=== PATIENT | female | born 1990 | race Caucasian/White ===

== ENCOUNTER 2019-08-25 08:55 | Emergency (ER) | payer MEDICAID, SELFPAY ==
[2019-08-25 08:56] VITALS: BP 118/68; PULSE 90; RESP 18; TEMP 36.6; O2SAT 100; BMI 25.9
--- NOTE | 2019-08-25 09:04 | US_ITS ---
STUDY: FIRST TRIMESTER OBSTETRICAL ULTRASOUND REASON FOR EXAM: Female, 29 years old BLEEDING QUANT 990 LMP: July 21, 2019. TECHNIQUE: Transvaginal TECHNICAL QUALITY: Adequate. PRIOR ULTRASOUND: None. FINDINGS: There is no demonstrated intrauterine gestational sac. There is no demonstrated yolk sac. The placenta is non-visualized. There is no demonstrated embryo ( pole). The uterus measures 7.8 cm x 4.1 cm x 3.1 cm. The endometrium measures 5.7 mm in full thickness. Tissue is seen within the endometrium with small amount of fluid. This may represent spontaneous . There is no demonstrated uterine fibroid. The cervix is closed. The right ovary measures 2 cm x 1.9 cm x 1.3 cm. There is no right ovarian cyst. There is no visualized right adnexal mass or complex lesion. The left ovary measures 3.7 cm x 2.7 cm x 2 cm. There is no left ovarian cyst. There is no visualized left adnexal mass or complex lesion. There is no fluid in the cul de sac. US/Transvaginal w/Preg US IMPRESSION: No evidence of intrauterine gestation. Soft tissue density within the endometrium. Spontaneous should be ruled out. Electronically Signed: Dino Mcdaniels, at 11:30 EDT , Service support ,
--- NOTE | 2019-08-25 09:07 | ED.VIS.GEN ---
History of Present Illness Chief Complaint: Vag Bld, Preg Informant: Patient Onset: Today Context: Gradual Onset Timing: Intermittent Current Severity: Moderate Maximum Severity: Moderate Narrative: The patient is a 29-year-old female G1, P0 at approximately 5 weeks gestation that presents to the emergency department with abdominal cramping and vaginal bleeding. Patient is currently at [facility] abuse [facility]. She states that she is had 3+ urine test. Today, she began to have some lower abdominal cramping and scant vaginal bleeding. She does think that her blood type is A-. She is never been in the past. She denies any weakness, nausea, or vomiting. She denies any urinary symptoms. Prior similar symptoms: No Recent Illness/Hospitalization: No Past Medical History - Allergies and Home Meds Allergies/Adverse Reactions: Allergies latex Allergy (Verified 08/25/19 08:59) Rash DAIRY Allergy (Uncoded 08/25/19 08:59) Vomiting Primary Care Physician: Anupama Pink MD [STAFF PHYSICIAN] - 2 Days Prior records reviewed: Yes Past Medical History: None Surgical History: no surgical history Review of Systems General: Denies: Chills, Fever, Sweats Eyes: Denies: Visual changes - bilaterally, Diplopia ENT: Denies: Rhinorrhea, Sore throat Cardiovascular: Denies: Chest pain, Palpitations Respiratory: Denies: Dyspnea, Cough, Dyspnea on exertion Gastrointestinal: Reports: Abdominal pain. Denies: Nausea, Vomiting, Diarrhea, Melena, Hematochezia Genitourinary: Denies: Dysuria, Hematuria, Frequency Musculoskeletal: Denies: Back pain, Extremity Pain Skin: Denies: Rash, Wounds Neurological: Denies: Headache, Weakness, Numbness Physical Exam Vital Signs/Narrative: Vital Signs Temp Pulse Resp BP Pulse Ox 08/25/19 08:56 98 F 90 18 118/68 100 Inital Vital Signs reviewed: Yes General: Well nourished, Well developed, No Acute Distress Head: Normocephalic, Atraumatic Eyes: Perrl, EOMI ENT: Moist mucous membranes, No rhinorrhea Neck: Supple, Nontender Cardiovascular: Regular rate, Regular rhythm, No murmurs Respiratory: No distress, CTA bilaterally, Chest nontender Abdomen: Soft, Nontender, Nondistended, Normal bowel sounds Back: Nontender, Normal Inspection Extremities: Nontender, No edema Skin: Normal color, No rash Neurological: Alert, Oriented x3, Cranial nerves II-XII grossly intact, Normal Strength, Normal Sensation Psychological: Normal affect, Normal Mood Diagnostic/Tx/Re-eval Clinical Impression(s) from Imaging Studies Obstetrics Ultrasound 08/25/19 09:04 IMPRESSION: No evidence of intrauterine gestation. Soft tissue density within the endometrium. Spontaneous should be ruled out. Electronically Signed: Dino Mcdaniels, at 11:30 EDT , Service support , Abnormal Lab Results 08/25/19 08/25/19 08/25/19 09:20 09:20 09:20 WBC 5.8 RBC 4.56 Hgb 13.4 Hct 40.9 MCV 89.7 MCH 29.4 MCHC 32.8 RDW Std Deviation 40.3 RDW Coeff of Glory 12.2 Plt Count 271 MPV 8.8 Immature Gran % (Auto) 0.300 Neut % (Auto) 65.2 Lymph % (Auto) 23.7 Harlan % (Auto) 8.7 Eos % (Auto) 1.6 Baso % (Auto) 0.5 Absolute Neuts (auto) 3.8 Absolute Lymphs (auto) 1.37 Nucleated RBC % 0 HCG, Quant 990 H Blood Type A POSITIVE - Medical Decision Making Patient presents to the emergency department with vaginal bleeding and positive test. Abdomen is soft and nontender. Patient's blood type was a positive. Quant was about 990. Patient underwent ultrasound which shows no evidence of ectopic. There was questionable evidence of recent spontaneous . The patient was counseled on this. She does have follow-up in place with [facility]. I did family court counsellor her that she would likely need a repeat quant in 2 days, along with if her symptoms are worsening, she gets any worsening pain, nausea, or anything changes that she should return. She is comfortable this plan of care and will be discharged home. Impression 1. Spontaneous ED Disposition - Plan for ED Patient: Instructions: Miscarriage Referrals: Anupama Pink MD [STAFF PHYSICIAN] - 2 Days
[2019-08-25 09:33] LABS: Absolute Lymphocyte Count 1.37 X10^3/uL (0.83-4.51); Absolute Neutrophil Count 3.8 X10^3/uL (2.0-7.7); Basophil# 0.03 X10^3/uL; Basophil% 0.5 % (0-1); Eosinophil# 0.09 X10^3/uL; Eosinophils% 1.6 % (0-5); Hematocrit 40.9 % (37-47); Hemoglobin 13.4 g/dL (12.0-15.0); Lymphocyte # 1.37 X10^3/ul (4.0); Lymphocyte % 23.7 % (19-41); Mean Corp Hgb Conc 32.8 g/dL (32-36); Mean Corpuscular Hgb 29.4 pg (27.0-32.0); Mean Corpuscular Volume 89.7 fL (81-99); Mean Platelet Vol. 8.8 fl (6.2-12.0); Monocyte% 8.7 % (0-10); NRBC Flagged by Analyzer 0 % (0-5); Neutrophil # 3.76 X10^3/uL (2.7-7.7); Neutrophil % 65.2 % (47-70); Platelet Count 271 K/mm3 (150-450); RBC Distribution Width CV 12.2 % (11.6-14.6); RBC Distribution Width SD 40.3 fl (35.1-43.9); Red Blood Count 4.56 M/mm3 (4.2-5.4); White Blood Count 5.8 K/mm3 (4.4-11.0)
[2019-08-25 09:53] LABS: hCG Titer Quant., Serum 990 mIU/mL (1-3)
[2019-08-25 11:35] VITALS: BP 108/60; PULSE 81; RESP 16; O2SAT 98
== END 2019-08-25 12:17 | disposition home or self-care (01) ==
LOC: ED 12:11
PROVIDERS: Emergency Provider Emergency Medicine
DX: O03.9 Complete or unspecified spontaneous abortion without complication (principal)
CPT/HCPCS: 76817; 84702; 85025; 86900; 86901; 99283

== ENCOUNTER 2019-08-28 15:53 | Day surgery (SDC) | payer MEDICAID, SELFPAY ==
[2019-08-28] VITALS (7 sets, daily range): BP systolic 101–120; BP diastolic 65–83; PULSE 63–96; RESP 16; TEMP 36.3–37; O2SAT 93–99; BMI 28.3
--- NOTE | 2019-08-28 16:30 | POC_PTH ---
PATIENT: MAX KIMBLE [place] [facility] [place][id number] AGE/SX: 29/F ROOM: RE08/28/[address]: Dr. Iris Smith MD : 1990 BED: DIS: 08/28/2019 SPEC #: [id number] RECD: 08/31/19 10:27 STATUS: DICKSON PERCYMaryam #: [id number] FRANCIA: 08/28/19 16:[address]: Iris Smith DEPT: SURGICAL PATHOLOGY RECD BY: Clinton Saucedo ENTERED: 08/31/19 10:53 SP TYPE: PROD CONC OTHR DR: No Primary Care Phys Tissues: A - Product of conception, NOS B - Endometrium, NOS Procedures: Surgery Specimen Level IV HEADER OPERATION: Laparoscopic salpingostomy, D & C PRE-OP DIAGNOSIS: Ectopic TISSUE SUBMITTED: A - Products of conception, B - Endometrial curettings MICROSCOPIC DIAGNOSIS A. Endometrium, curettage: Organizing blood clot and fibrinoid material. See comment. B. Endometrium, curettings: Secretory endometrium and decidualized tissue. AM:hina 09/01/19 COMMENT A. Chorionic villi are not identified. Clinical correlation is suggested. MICROSCOPIC DESCRIPTION Slides are reviewed. GROSS DESCRIPTION A - Received in fixative is one container labeled with the patient's name and designated products of conception. The specimen consists of multiple irregular fragments of dark serna soft tissue that in aggregate measure 3 x 2 x 0.3 cm. The specimen is totally submitted in one cassette. B - Received in fixative is one container labeled with the patient's name and designated endometrial curettings. The specimen consists of multiple irregular fragments of light serna mucoid material that in aggregate measure 2.6 x 2 x 0.2 cm. The specimen is totally submitted in one cassette. / AM:hina 08/31/19 TC:5 CPT: 42071 x2
--- NOTE | 2019-08-28 16:31 | PCM.HP.BLA ---
History and Physical Date of Admission: 08/28/19 ? HPI:?Patient presents with LLQ pain. ?The pain started today &?has become severe. ?Also she reports vaginal bleeding. ? PAST MEDICAL HISTORY PAST MEDICAL HISTORY Diagnosis Date ? Anxiety ? ? Asthma ? ? Depression ? ? Environmental and seasonal allergies ? ? Migraines ? ? Substance abuse (HCC) ? PAST SURGICAL HISTORY PAST SURGICAL HISTORY Procedure Laterality Date ? TONSILLECTOMY AND ADENOIDECTOMY HX ? 06/2004 ? UNSPECIFIED ORAL SURGERY PROCEDURE, BY REPORT ? 10/2007 ? wisdom tooth extraction FAMILY HISTORY FAMILY HISTORY Problem Relation Age of Onset ? Anxiety disorder Mother ? ? Depression Mother ? ? Allergies Mother ? ? Psychiatry Mother ? ? Alcohol/Drug Mother ? ? Psychiatry Father ? ? Alcohol/Drug Father ? ? No Known Problems Sister ? ? No Known Problems Brother ? SOCIAL HISTORY Social History ? Tobacco Use ? Smoking status: Current Every Day Smoker ? Smokeless tobacco: Never Used ? Tobacco comment: 6-7 cigarettes per day Substance Use Topics ? Alcohol use: Not Currently ? ? Frequency: Never ? ? Comment: Relapse yesterday (07/16/19) ? Drug use: Not Currently ? ? Comment: Cocaine abuse in sustanied remission CURRENT MEDICATIONS Current Outpatient Medications Medication Sig ? ibuprofen (MOTRIN) 600 mg tablet Take 1 tablet by mouth every 6 hours as needed. FOR PAIN. ? venlafaxine ER (EFFEXOR XR) 75 mg 24 hr capsule Take 1 capsule by mouth once daily. ? traZODone (DESYREL) 100 mg tablet Take 1 tablet by mouth daily at bedtime. ? prazosin (MINIPRESS) 1 mg cap Take 1 capsule by mouth twice daily. ? hydrOXYzine HCl (ATARAX) 50 mg tablet Take 1 tablet by mouth three times daily as needed. ? No current facility-administered medications for this visit.? Allergies As of Date: 08/28/2019 Allergen ?Noted ?Reaction DAIRY AID [LACTASE] ?12/04/2018 ?Intolerance LATEX ?12/03/2018 ?Hives ? Fully Assessed ?08/27/2019 ? REVIEW OF SYSTEMS Abdomen:?No bloating, early satiety, indigestion, or increased flatulence. No abdominal pain, nausea, vomiting, diarrhea, or constipation.? Bladder:?No dysuria, gross hematuria, urinary frequency, urinary urgency, or incontinence. Expanded ROS:?N/A Allergies and current medication updated:Yes ? EXAM:?LMP 07/21/2019? ? ? GENERAL:?pleasant,??female in no apparent distress CHEST:?Normal inspiratory effort ABDOMEN:?soft and no masses;?positive?LLQ tenderness PELVIC:?deferred NEURO:?alert and oriented x3,exam grossly non-focal EXTREMITIES:?normal ? ASSESSMENT AND PLAN:?? 29yo female with ectopic Discussed R/B/A of treatment options and patient wishes to proceed with surgery. ??Informed consent signed &?patient to [facility]. ? Hcg quant is 930 today and was 990 on 08/24. US (formal reports pending) shows 1 complex masses in left adnexa (2.3 & 2.5cm) and thickened endometrium at 1.3cm?? this history and physical was completed in our office today on 08/28/2019.
[2019-08-28] MEDS: Celecoxib 200 MG Capsule 400 MG PO (16:35)
[2019-08-28] MEDS: Acetaminophen 500 MG Tablet 1000 MG PO (16:36)
[2019-08-28] MEDS: Gabapentin 400 MG Capsule PO (16:36)
[2019-08-28 16:40] LABS: Hematocrit 37.6 % (37-47); Hemoglobin 12.7 g/dL (12.0-15.0); Mean Corp Hgb Conc 33.8 g/dL (32-36); Mean Corpuscular Hgb 29.9 pg (27.0-32.0); Mean Corpuscular Volume 88.5 fL (81-99); Mean Platelet Vol. 9.1 fl (6.2-12.0); Platelet Count 262 K/mm3 (150-450); RBC Distribution Width CV 12.5 % (11.6-14.6); RBC Distribution Width SD 40.6 fl (35.1-43.9); Red Blood Count 4.25 M/mm3 (4.2-5.4); White Blood Count 10.4 K/mm3 (4.4-11.0)
[2019-08-28] MEDS: Vasopressin 20 UNITS/ML Vial (16:50)
[2019-08-28] MEDS: Bupivacaine Mpf 0.5% 30 ML VIAL (16:50)
--- NOTE | 2019-08-28 17:45 | PCM.OPRPT ---
Report of Operation Date of Procedure: 08/28/19 Pre-Operative Diagnosis: acute abdominal pain, suspected left ectopic Post-Operative Diagnosis: left tubal ectopic Surgery/Procedure Performed:: laparoscopic left salpingostomy, D&C Description of Surgical Findings:: swollen left fallopian tube with some blood protruding from the end. Small amount of blood in peritoneal cavity finance analyst: Breanna Gottlieb Type of Anesthesia:: General Anesthesiologist: Daniel Fuentes Special Medications: vaopression- 6 cc of vasopression solution (20 units in 100 cc of normal saline) Specimen's removed: products of conception from fallopian tubes and endometrial curettings Drains: none Estimated Blood Loss (mL): 50 Fluids Replaced: 700 cc LR Description of Procedure: The patient was taken to the operating room where she was prepped and draped in the dorsolithotomy position. A weighted speculum was placed in the vagina and the anterior lip of the cervix was grasped with a tenaculum. The Thelma uterine manipulator was placed and the remainder of the instruments were removed from the vagina. Attention was turned to the abdomen. All port sites were infiltrated with 0.5% Marcaine before skin incisions were made. A 5 mm intraumbilical incision was made. The anterior abdominal wall was tented up with 2 towel clamps while a 5 mm blade less trocar and sleeve were directly inserted. Intraperitoneal placement was confirmed with the laparoscope. The pneumoperitoneum was created and the underlying abdominal contents were intact. The patient was placed in Trendelenburg. Right and left lower quadrant ports were placed under direct visualization lateral to the inferior epigastric vessels. The bowel was swept away and the above findings were noted. The antimesenteric portion of the left tube was infiltrated with the suppressant solution. Monopolar scissors were used to make a small incision over the bulging portion of the tube. Suction technical support representative was then used to help create a plane and we are able to easily tease appeared to be the products of conception and blood clot out of the tubal lumen. The specimen was removed in pieces through the small ports. Suction technical support representative was then used to gently irrigate the salpingostomy site. The remaining tubes and ovaries appeared normal. The uterus was normal. The blood was suctioned out of the peritoneal cavity. Some Vj was then placed over the salpingostomy site. The lateral ports were removed under direct visualization and no active bleeding was noted. The pneumoperitoneum was released. The skin incisions were closed with Monocryl suture in a subcuticular fashion and skin glue. Dr. Gottlieb then dilated the cervix and a gentle sharp curettage was done due to the patient's active vaginal bleeding and having a 1 cm endometrial stripe. Endometrial curettings were handed off. The vaginal instruments were removed and the vaginal sweep was completed by Dr. Gottlieb. The procedure was performed by me with assistance other than as dictated above. All sponge and needle counts were correct and the patient was taken to the recovery room in stable condition. Grafts/Implants Used: none - Complications none - Admit VTE Documentation VTE Present on Admission: No VTE Mechan Device Prophylaxis: SCD's VTE Pharm Prophylaxis ordered?: No Reason prophylaxis not ordered:: Procedure Not Indicated
--- NOTE | 2019-08-28 17:56 | DCINST_ITS ---
Discharge Diet: No Restrictions - Increase fluid intake for the next 48 hours. Discharge Activity: Return to Normal Activity, May Drive - when you are no longer taking pain/narcotic meds., May Shower, May Take a Tub Bath - in 7 days Additional Activity Instructions:: Ambulate often the next week after surgery. Nothing in the vagina for 5 days. Call your doctor if your incision/area has: Continuous Slow Oozing, Sudden Increased Bleeding, Increased Pain/ Swelling, Increased Redness, Foul Smelling Discharge Call your doctor if you observe: Fever of 101 or Higher Allergies/Adverse Reactions: Allergies latex Allergy (Verified 08/25/19 08:59) Rash DAIRY Allergy (Uncoded 08/25/19 08:59) Vomiting Medications to take at Discharge Ibuprofen [Motrin] 600 mg PO Q6H PRN #60 tab 08/28/19 Oxycodone [Oxyir] 2.5 - 5 mg PO Q6H PRN PRN 7 Days #15 tablet 08/28/19 The following prescriptions were given: Ibuprofen [Motrin] 600 mg PO Q6H PRN #60 tab PRN Reason: Pain Transmission Status: Pending to [id number] Oxycodone [Oxyir] 2.5 - 5 mg PO Q6H PRN PRN 7 Days #15 tablet PRN Reason: severe pain Transmission Status: Received by [id number] Primary Care Physician: Care Physician,No Primary [Primary Care Provider] - Test Results: Test results from this visit will be discussed in further detail at your follow- up appointment, if applicable. Please Follow Up With: Breanna Gottlieb MD - [phone] When: 1-2 weeks or as needed
[2019-08-28] MEDS: Lactated Ringers 1,000 ML 75 ML IV ×2 (18:25→18:26)
== END 2019-08-28 19:23 | disposition home or self-care (01) ==
PROVIDERS: Referring Provider Obstetrics & Gynecology; Visit Provider Obstetrics & Gynecology
PROC: 10T24ZZ Resection of Products of Conception, Ectopic, Percutaneous Endoscopic Approach (ICD-10-PCS; CPT 59150; principal; 2019-08-28 16:15)
DX: O00.102 Left tubal pregnancy without intrauterine pregnancy (principal); F41.9 Anxiety disorder, unspecified; F32.9 Major depressive disorder, single episode, unspecified; F14.11 Cocaine abuse, in remission; F17.210 Nicotine dependence, cigarettes, uncomplicated
CPT/HCPCS: 59151; 36415; 85027; 86850; 86900; 86901; 88305; J7120; A4216; J2405

== ENCOUNTER 2019-12-08 08:37 | Emergency (ER) | payer MEDICAID, SELFPAY ==
[2019-10-13 10:50] VITALS: BMI 28.3
[2019-12-08 08:38] VITALS: BP 112/71; PULSE 72; RESP 18; TEMP 36.6; O2SAT 100; BMI 27.4
--- NOTE | 2019-12-08 08:55 | ED.VIS.BACK ---
History of Present Illness Chief Complaint: Back Informant: Patient Onset: Weeks - 2 Context: Gradual Onset Injury: - - unk, but does repetitive lifting at work Quality: Aching Location: Lumbar, Buttock, Right Leg, Left Leg, - - bilateral Current Severity: Severe Maximum Severity: Severe Worsened by: improves with: Movement, Ambulation, Bending, Lifting Relieved by: Nothing. Not Relieved By: Medications - trying naproxen and flexeril, no help Associated Symptoms: Tingling, Radiation to Right Leg, Radiation to Left Leg, - - No bowel or bladder dysfunction or saddle anesthesia Narrative: Patient has had significant worsening of this discomfort in the last 4 or so days. She was seen at another ER and prescribed Naprosyn and Flexeril but they are not helping. She had no x-rays. She has had no acute injury but does lots of repetitive lifting at work and suspects that may be related. She is healthy otherwise. She is a smoker. She states that the discomfort radiates down to the back of both legs, it does not go past the mid calf in either leg, one goes down a little further than the other. Started down the left, but now involving the right just this morning. Past Medical History - Allergies and Home Meds Allergies/Adverse Reactions: Allergies latex Allergy (Verified 12/08/19 08:41) Rash DAIRY Allergy (Uncoded 12/08/19 08:41) Vomiting Primary Care Physician: Henrietta Esteban MD [Primary Care Provider] - Past Medical History: None Surgical History: no surgical history Lives: Spouse/ Significant Other Smoking Status: Current every day smoker Review of Systems General: Denies: Chills, Fever, Sweats Eyes: Denies: Visual changes - bilaterally, Diplopia ENT: Denies: Rhinorrhea, Sore throat Cardiovascular: Denies: Chest pain, Palpitations Respiratory: Denies: Dyspnea, Cough, Dyspnea on exertion Gastrointestinal: Denies: Abdominal pain, Nausea, Vomiting, Diarrhea, Melena, Hematochezia Genitourinary: Denies: Dysuria, Hematuria, Frequency Musculoskeletal: Reports: Back pain. Denies: Extremity Pain Skin: Denies: Rash, Wounds Neurological: Reports: Parasthesia. Denies: Headache, Weakness Physical Exam Vital Signs/Narrative: Vital Signs Temp Pulse Resp BP Pulse Ox 12/08/19 08:38 97.9 F 72 18 112/71 100 Inital Vital Signs reviewed: Yes General: Well nourished, Well developed, - - Well-appearing no distress Head: Normocephalic, Atraumatic Neck: Supple, Nontender Back: Normal Inspection, Paraspinal Tenderness - Diffuse bilateral, and into both buttocks and sciatic notches, Negative SLR - Right - Causes increased back pain and hamstring stretching only, no radicular symptoms reproduced, Negative SLR - Left - Causes increased back pain and hamstring stretching only, no radicular symptoms reproduced. Negative for: Spinal tenderness Extremeties: Nontender, No edema, Strong Pulses, Symmetric Skin: Normal color, No rash Neuro: Alert, Oriented, Normal Strength, Normal Sensation, Normal DTR, Normal Gait - Except antalgic Reflexes: - - Downgoing toes bilaterally. No clonus. Psychological: Normal affect, Normal Mood Diagnostic/Tx/Re-eval - Medical Decision Making No x-rays indicated. We discussed that an MRI may or may not show disc issues here, it is questionable whether this is truly sciatica as she is testing negative for radicular findings, however symptoms suggest it. I am okay giving her a short course of tramadol after reviewing her orders, and a short course of prednisone to see if that helps. Advised to follow-up with her doctor as she may end up needing an MRI for this if persistent. ED Disposition - Plan for ED Patient: Disposition: Home or Assisted Living Diagnosis: Low back pain Instructions: ED Back Pain Acute or Chronic Prescriptions: Prednisone [Deltasone] 40 mg PO DAILY #10 tab Transmission Status: Pending to [id number] traMADol [Ultram] 50 mg PO Q4H PRN PRN 2 Days #12 tablet PRN Reason: Pain Transmission Status: Sent to [id number] Referrals: Henrietta Esteban MD [Primary Care Provider] - 5-7 Days
[2019-12-08] MEDS: Ketorolac 30 MG/ML Syringe IM (09:36)
[2019-12-08] MEDS: Morphine 4 MG/ML Syringe IM (09:37)
== END 2019-12-08 09:57 | disposition home or self-care (01) ==
LOC: ED 09:05
PROVIDERS: Emergency Provider Emergency Medicine; PCP Internal Medicine
DX: M54.5 Low back pain (principal); F17.200 Nicotine dependence, unspecified, uncomplicated
CPT/HCPCS: 96372; 99282

== ENCOUNTER 2020-01-26 16:45 | Outpatient (REF) | payer SELFPAY | END 2020-01-26 19:30 | disposition home or self-care (01) | LOC: EDREF 16:45 | DX: Z04.41 Encounter for examination and observation following alleged adult rape (principal) ==

== ENCOUNTER → 2020-03-01 11:29 | Outpatient (CLI) | payer MEDICAID, SELFPAY | PROVIDERS: PCP Nurse Practitioner Family; Referring Provider Nurse Practitioner Family; Visit Provider Nurse Practitioner Family | DX: R05 Cough (principal) | CPT/HCPCS: 87635; U0003 ==

== ENCOUNTER → 2021-08-08 | Outpatient (CLI) | payer MEDICAID, SELFPAY ==
[2021-08-08 16:55] LABS: Absolute Lymphocyte Count 2.06 X10^3/uL (0.83-4.51); Absolute Neutrophil Count 3.9 X10^3/uL (2.0-7.7); Basophil# 0.03 X10^3/uL; Basophil% 0.5 % (0-1); Eosinophils% 1.5 % (0-5); Hematocrit 41.6 % (37-47); Hemoglobin 13.7 g/dL (12.0-15.0); Lymphocyte # 2.06 X10^3/ul (0.83-4.51); Lymphocyte % 31.6 % (19-41); Mean Corp Hgb Conc 32.9 g/dL (32-36); Mean Corpuscular Hgb 29.1 pg (27.0-32.0); Mean Corpuscular Volume 88.3 fL (81-99); Mean Platelet Vol. 9.6 fl (6.2-12.0); Monocyte# 0.45 X10^3/uL; Monocyte% 6.9 % (0-10); NRBC Flagged by Analyzer 0 % (0-5); Neutrophil # 3.87 X10^3/uL (2.7-7.7); Neutrophil % 59.3 % (47-70); Platelet Count 323 K/mm3 (150-450); RBC Distribution Width CV 12.8 % (11.6-14.6); RBC Distribution Width SD 41.8 fl (35.1-43.9); Red Blood Count 4.71 M/mm3 (4.2-5.4); White Blood Count 6.5 K/mm3 (4.4-11.0)
[2021-08-08 17:15] LABS: AST(SGOT) 12 U/L (15-37); Alanine Aminotransfer ALT/SGPT 20 U/L (13-56); Albumin, Serum 3.5 g/dL (3.2-5.0); Alkaline Phosphatase 132 U/L (45-117); Anion Gap 6 (5-15); BUN 14 mg/dL (7-18); BUN/Creat Ratio 16.3 RATIO (10-20); Calcium,Total 8.8 mg/dL (8.5-10.1); Chloride 109 mmol/L (98-107); Cholesterol 183 mg/dL (200); Creatinine, Serum 0.86 mg/dL (0.55-1.02); EST Glomerular Filtration Rate 83 mL/min (>60); Est Glom Filt Rate - Afr Amer 100 mL/min (>60); Globulin 3.6 g/dL (2.2-4.2); Glucose 99 mg/dL (74-106); High Density Lipoprotein 48 mg/dL; Protein, Total 7.1 g/dL (6.4-8.2); Sodium Level 138 mmol/L (136-145); Thyroid Stim Hormone (TSH) 1.54 uIU/mL (0.358-3.74); Triglycerides 82 mg/dL; Very Low Density Lipoprotein 16 mg/dL (5-40)
== END | disposition home or self-care (01) ==
LOC: BIMLAB 15:16
PROVIDERS: PCP Internal Medicine; Referring Provider Nurse Practitioner Family; Visit Provider Nurse Practitioner Family
DX: Z00.00 Encounter for general adult medical examination without abnormal findings (principal); F31.9 Bipolar disorder, unspecified; F41.9 Anxiety disorder, unspecified
CPT/HCPCS: 36415; 80053; 80061; 84443; 85025

== ENCOUNTER → 2021-08-31 | Outpatient (CLI) | payer MEDICAID, SELFPAY ==
[2021-08-31 14:48] LABS: Mucous, Urine 0 SEEN /hpf (<or=2+); Red Blood Cells-Urine 0 SEEN /hpf (0-5)
[2021-08-31 16:56] LABS: Color, Urine Yellow (Yellow); Glucose, Dipstick Normal (Normal); Ketone-Dipstick Negative (Negative); Leukocyte Esterase-Dipstick 500 /ul (Negative); Nitrite-Dipstick Negative (Negative); Occult Blood-Urine Negative /ul (Negative); Protein-Dipstick Negative (Negative); Urine Bilirubin Dipstick Negative (Negative); Urine Clarity Clear (Clear); Urine Urobilinogen Normal (Normal)
[2021-08-31 18:08] LABS: Bacteria 1+ /hpf (None Seen); Squamous Epithelial Cells - UA 5-10 SEEN /hpf (5-10); White Blood Cells 5-10 SEEN /hpf (0-5)
== END | disposition home or self-care (01) ==
LOC: BIMLAB 14:47
PROVIDERS: PCP Internal Medicine; Visit Provider Physician Assistant
DX: R35.0 Frequency of micturition (principal)
CPT/HCPCS: 81001; 87086; 87088

== ENCOUNTER 2024-03-26 15:58 | Emergency (ER) | payer MEDICAID, SELFPAY ==
[2024-03-26 15:59] VITALS: BP 106/78; PULSE 130; RESP 22; TEMP 36.4; O2SAT 99; BMI 39.1
[2024-03-26 18:12] VITALS: BP 128/75; PULSE 132; RESP 16; O2SAT 98
[2024-03-26 18:21] LABS: Absolute Lymphocyte Count 0.82 X10^3/uL (0.83-4.51); Absolute Neutrophil Count 11.1 X10^3/uL (2.0-7.7); Basophil# 0.03 X10^3/uL; Basophil% 0.2 % (0-1); Eosinophil# 0.05 X10^3/uL; Eosinophils% 0.4 % (0-5); Hematocrit 45.2 % (37-47); Lymphocyte # 0.82 X10^3/ul (0.83-4.51); Lymphocyte % 6.6 % (19-41); Mean Corp Hgb Conc 33.2 g/dL (32-36); Mean Corpuscular Hgb 28.3 pg (27.0-32.0); Mean Corpuscular Volume 85.3 fL (81-99); Mean Platelet Vol. 9.1 fl (6.2-12.0); Monocyte# 0.45 X10^3/uL; Monocyte% 3.6 % (0-10); NRBC Flagged by Analyzer 0 % (0-5); Neutrophil % 88.8 % (47-70); Platelet Count 375 K/mm3 (150-450); RBC Distribution Width CV 14.1 % (11.6-14.6); RBC Distribution Width SD 43.4 fl (35.1-43.9); White Blood Count 12.5 K/mm3 (4.4-11.0)
[2024-03-26 18:29] LABS: Internal QC Validated? YES +Cl - CLEAR BKGD; Pregnancy, Serum, hCG Quali. NEGATIVE Negative
[2024-03-26 18:37] LABS: ALB/GLOB Ratio 0.8 RATIO (0.9-2.4); AST(SGOT) 26 U/L (15-37); Alanine Aminotransfer ALT/SGPT 33 U/L (13-56); Albumin, Serum 3.6 g/dL (3.2-5.0); Alkaline Phosphatase 93 U/L (45-117); Anion Gap 6 (5-15); BUN 14 mg/dL (7-18); BUN/Creat Ratio 12.2 RATIO (10-20); Calcium,Total 9.1 mg/dL (8.5-10.1); Chloride 105 mmol/L (98-107); Creatinine, Serum 1.15 mg/dL (0.55-1.02); EST Glomerular Filtration Rate 58 mL/min (>60); Est Glom Filt Rate - Afr Amer 70 mL/min (>60); Estimated Creatinine Clearance 79.31 ml/min; Globulin 4.3 g/dL (2.2-4.2); Glucose 100 mg/dL (74-106); Potassium 3.2 mmol/L (3.5-5.1); Protein, Total 7.9 g/dL (6.4-8.2); Sodium Level 134 mmol/L (136-145)
[2024-03-26] MEDS: Ketorolac 15 MG/ML Vial IV (19:06)
[2024-03-26] MEDS: Ondansetron 4 MG/2 ML Vial IV (19:06)
[2024-03-26] MEDS: 0.9% Normal Saline (1000mL) 1,000 ML 999 ML IV ×2 (19:06→21:05)
--- NOTE | 2024-03-26 19:12 | EX.ED.DYSGE1 ---
HPI History of Present Illness Chief Complaint: Nausea/Vomiting/Diarrhea Narrative Narrative: Patient presenting today with nausea, vomiting, diarrhea, and abdominal discomfort that started around 2 AM this morning. She reports that other members of her household have had similar symptoms and thinks that the stomach flu is going around her house. Previous abdominal surgeries include appendectomy and cholecystectomy. She denies fevers, chills, and urinary symptoms. [facility] Medical History Contact with or exposure to other viral diseases Acute sinusitis, unspecified Polysubstance abuse Migraines Seasonal allergies Anxiety and depression Bipolar 1 disorder Depression Home Medications ?Medication ?Instructions ?Recorded ?Last Taken ?Type ibuprofen 600 mg tablet 600 mg PO Q6H PRN Pain #60 tabs 08/28/19 Unknown Rx multivitamin (Daily Multi-Vitamin 1 tab PO DAILY #90 tabs 11/18/19 Unknown Rx tablet) hydroxyzine HCl 50 mg tablet 50 mg PO BID PRN Anxiety #60 tabs 08/10/20 Unknown Rx prazosin 1 mg capsule (Minipress) 1 mg PO QHS #90 caps 08/10/20 Unknown Rx quetiapine 200 mg tablet,extended 200 mg PO QHS #60 tabs 08/08/21 Unknown Rx release 24 hr cariprazine 3 mg capsule (Vraylar) 3 mg PO DAILY 11/08/21 Unknown History ubrogepant 100 mg tablet (Ubrelvy) 100 mg PO DAILY #45 tabs 11/08/21 Unknown Rx ondansetron 4 mg disintegrating 4 mg PO Q8H PRN PRN Nausea #10 tabs 03/26/24 Unknown Rx tablet Allergy/AdvReac Type Severity Reaction Status Date / Time latex Allergy Rash Verified 03/26/24 15:59 Milk Containing Products AdvReac Vomiting Verified 03/26/24 15:59 (Dairy) (Milk Containing Products) Family History Mother Anxiety and depression Asthma Surgical History [place] teeth extracted tonsillectomy S/P appendectomy Ectopic Social History Smoking Status: Current every day smoker tobacco type: cigarettes alcohol intake: former substance use type: former substance user, crack/cocaine and painkillers ROS ROS ED Constitutional Constitutional ED: Denies chills or fever(s) Cardiovascular Cardiovascular: Denies chest pain Respiratory/Chest Respiratory/Chest: Denies cough Gastrointestinal Gastrointestinal: Reports abdominal pain, diarrhea, nausea and vomiting; Denies constipation or melena Genitourinary Genitourinary ED: Denies dysuria, hematuria or urinary urgency Musculoskeletal Musculoskeletal: Reports myalgias Integumentary Denies rash Neurologic Neurologic: Denies weakness EXAM Physical Exam Const Vital Signs: 03/26/24 15:59 03/26/24 18:12 03/26/24 20:00 Temperature 97.6 F L Temperature Source Oral Pulse Rate 130 H 132 H 115 H Respiratory Rate 22 H 16 22 H Blood Pressure 106/78 128/75 H Blood Pressure Mean 87 92 Pulse Ox 99 98 98 Oxygen Delivery Method Room Air Room Air Room Air Positive well nourished, well developed and no apparent distress General Appearance ED: well developed HEENT Reports normocephalic and head/scalp atraumatic Mouth ED: Yes moist mucous membranes normal Eyes PERRL and EOMs intact bilaterally Neck full ROM and supple Chest Wall inspection of chest normal Resp normal respiratory effort and clear to auscultation bilaterally Cardio regular rate and regular rhythm GI soft to palpation, non-tender, non-distended and no masses Palpation: Negative for guarding Back/Spine normal ROM and normal to inspection Extremity normal to inspection and full ROM Neuro oriented x3, CN's II-XII intact bilaterally, moves all extremities, no focal motor deficits and no sensory deficits noted Sensorium / Orientation: awake and alert Psych mental status grossly normal and thought process normal Skin no rashes or lesions noted and no wounds MDM MDM MDM Narrative Medical decision making narrative: Patient presenting with nausea, vomiting, left upper quadrant abdominal pain, and diarrhea that started around 2 AM this morning. Multiple members of her household have been sick with similar symptoms. I do suspect that this is likely gastroenteritis. Her abdomen is soft and nontender. She does have a WBC of 12.5, sodium of 134, potassium 3.2, creatinine 1.15. She will be given 2 L IV fluids, Zofran, and Toradol. On reexamination she does report still feeling slightly nauseous, she was given IV Reglan. She is now tolerating p.o. fluids and has not had any vomiting while here. As long as her heart rate improves, she will be discharged home in stable condition with a prescription for Zofran. Return instructions were discussed. Recommended she follow-up with her PCP. Lab Data Attestation: I reviewed the patient's lab results. Labs: Laboratory Results - last 24 hr 03/26/24 03/26/24 18:08 19:37 WBC 12.5 H RBC 5.30 Hgb 15.0 Hct 45.2 MCV 85.3 MCH 28.3 MCHC 33.2 RDW Std Deviation 43.4 RDW Coeff of Glory 14.1 Plt Count 375 MPV 9.1 Immature Gran % (Auto) 0.400 Neut % (Auto) 88.8 H Lymph % (Auto) 6.6 L [place] % (Auto) 3.6 Eos % (Auto) 0.4 Baso % (Auto) 0.2 Absolute Neuts (auto) 11.1 H Absolute Lymphs (auto) 0.82 L Nucleated RBC % 0 Sodium 134 L Potassium 3.2 L Chloride 105 Carbon Dioxide 23.0 Anion Gap 6 BUN 14 Creatinine 1.15 H Estim Creat Clear Calc 79.31 Est GFR (MDRD) Af Amer 70 Est GFR (MDRD) Non-Af 58 L BUN/Creatinine Ratio 12.2 Glucose 100 Calcium 9.1 Total Bilirubin 0.50 AST 26 ALT 33 Alkaline Phosphatase 93 Total Protein 7.9 Albumin 3.6 Globulin 4.3 H Albumin/Globulin Ratio 0.8 L Serum , Qual NEGATIVE Urine Color Yellow Urine Clarity Sl. Cloudy Urine pH 6.0 Ur Specific [place] 1.015 Urine Protein 30 H Urine Glucose (UA) Normal Urine Ketones 5 H Urine Occult Blood 10 H Urine Nitrite Negative Urine Bilirubin 1 H Urine Urobilinogen 1 H Ur Leukocyte Esterase 500 H Urine RBC 0-5 SEEN Urine WBC 10-25 SEEN Ur Squamous Epith Cells 10-25 SEEN Urine Bacteria 2+ Urine Mucus 1+ Discharge Plan Triage Chief Complaint: Nausea/Vomiting/Diarrhea ED Midlevel Provider: Rosita Loomis ED Provider: Dilip Love Dx/Rx/DC Orders Clinical Impression: Gastroenteritis Instructions: ED Gastroenteritis, Viral (Adult) Prescriptions: New ondansetron 4 mg tablet,disintegrating 4 mg PO Q8H PRN PRN (Reason: Nausea) Qty: 10 0RF No Action prazosin [Minipress] 1 mg capsule 1 mg PO QHS Qty: 90 1RF hydroxyzine HCl 50 mg tablet 50 mg PO BID PRN (Reason: Anxiety) Qty: 60 1RF quetiapine 200 mg tablet extended release 24 hr 200 mg PO QHS Qty: 60 1RF Vraylar 3 mg capsule 3 mg PO DAILY Ubrelvy 100 mg tablet 100 mg PO DAILY Qty: 45 1RF Rx Instructions: as a single dose; may repeat once in >=2 hours after first dose if needed ibuprofen 600 MG tablet 600 mg PO Q6H PRN (Reason: Pain) Qty: 60 1RF multivitamin [Daily Multi-Vitamin] Tablet 1 tab PO DAILY Qty: 90 1RF Primary Care Provider: Komal Cannon Referrals: Henrietta Esteban MD [Med Staff - Active Staff] - 5-7 Days Activity Restrictions/Additional Instructions: Stay well-hydrated, follow-up with your PCP and return for any worsening symptoms. Print Language: Tajik Disposition Disposition: Home, Self Care
[2024-03-26 19:48] LABS: Color, Urine Yellow (Yellow); Glucose, Dipstick Normal (Normal); Ketone-Dipstick 5 mg/dl (Negative); Leukocyte Esterase-Dipstick 500 /ul (Negative); Nitrite-Dipstick Negative (Negative); Occult Blood-Urine 10 /ul (Negative); Protein-Dipstick 30 mg/dl (Negative); Specific Gravity, Urine 1.015 (1.002-1.030); Urine Bilirubin Dipstick 1 mg/dL (Negative); Urine Clarity Sl. Cloudy (Clear); Urine Urobilinogen 1 mg/dl (Normal)
[2024-03-26 19:55] LABS: Bacteria 2+ /hpf (None Seen); Mucous, Urine 1+ /hpf (<or=2+); Red Blood Cells-Urine 0-5 SEEN /hpf (0-5); Squamous Epithelial Cells - UA 10-25 SEEN /hpf (5-10); White Blood Cells 10-25 SEEN /hpf (0-5)
[2024-03-26 20:00] VITALS: PULSE 115; RESP 22; O2SAT 98
[2024-03-26] MEDS: Metoclopramide 10 MG/2 ML Vial 5 MG IV (21:06)
[2024-03-26 22:00] VITALS: PULSE 96; RESP 16; O2SAT 100
[2024-03-26 22:18] VITALS: PULSE 95; RESP 18; TEMP 36.9; O2SAT 97
== END 2024-03-26 22:38 | disposition home or self-care (01) ==
PROVIDERS: Internal Medicine; Emergency Provider Emergency Medicine; PCP Family Medicine; Visit Provider Emergency Medicine
DX: K52.9 Noninfective gastroenteritis and colitis, unspecified (principal); F31.9 Bipolar disorder, unspecified; F41.9 Anxiety disorder, unspecified; G43.909 Migraine, unspecified, not intractable, without status migrainosus; F17.210 Nicotine dependence, cigarettes, uncomplicated; Z90.49 Acquired absence of other specified parts of digestive tract; Z79.899 Other long term (current) drug therapy
CPT/HCPCS: 80053; 81001; 84703; 85025; 96361; 96374; 96375; 99283; J2405